=== PATIENT | female | born 1965 | race Caucasian/White ===

== ENCOUNTER 2021-08-09 08:57 | Outpatient (CLI) | payer OTHER, SELFPAY ==
--- NOTE | ~2021-08-09 | CT_ITS ---
EXAMINATION: CT brain wo con EXAM DATE: 08/09/2021 09:19 INDICATION: S09.90XA - Unspecified injury of head, initial encounter. TECHNIQUE: Spiral CT of the head was performed without contrast. Axial, coronal and sagittal images were reviewed. The dose-length product (DLP) for this examination was 599.57 mGy-cm. The exposure w as tailored according to patient size, and iterative reconstruction (ASIR) was used as additional dos e reduction technique. Comparison is made to prior examination from 10/05/2008. FINDINGS: Equivocal trace subarachnoid hemorrhage overlying posterior aspect right frontal lobe, slig ht hyperdensity along a sulcus. Location would be consistent with posttraumatic etiology. Assuming it is a real finding, should not require any further follow-up. There is mild atrophy and microangiopathy. No obstructive hydrocephalus, acute infarction, extra-axia l collection or brain mass. The orbits and soft tissues are unremarkable. IMPRESSION: Equivocal trace posttraumatic subarachnoid hemorrhage overlying right frontal lobe poste romedially. Reviewed, dictated and finalized at location B. IMPRESSION: Equivocal trace posttraumatic subarachnoid hemorrhage overlying ri ght frontal lobe posteromedially.
--- NOTE | ~2021-08-09 | XR_ITS ---
EXAMINATION: XR knee LT 3V DATE: 08/09/2021 09:54 INDICATION: Left knee pain. TECHNIQUE: 3 views of left knee including standing views were obtained. COMPARISON: None. FINDINGS: Bone alignment is normal. No fracture. There is mild osteoarthritis of medial and lateral c ompartments characterized by tiny osteophytes. No joint space narrowing. No knee joint effusion. IMPRESSION: 1. Mild left knee osteoarthritis. Reviewed, dictated and finalized at location A.
== END 2021-08-09 08:58 ==
PROVIDERS: PCP Internal Medicine; Visit Provider Nurse Practitioner
DX: M17.12 Unilateral primary osteoarthritis, left knee (principal); S06.6X9A Traumatic subarachnoid hemorrhage with loss of consciousness of unspecified duration, initial encounter
CPT/HCPCS: 70450; 73562

== ENCOUNTER 2023-04-07 09:58 | Outpatient (CLI) | payer OTHER, SELFPAY ==
--- NOTE | ~2023-04-07 | MR_ITS ---
MRI of the lumbar spine Clinical History: Lower extremity numbness Technique: Axial T2-weighted images, and sagittal T1-weighted, T2-weighted, and and T2 fat-sat images were acquired. COMPARISON: 05/30/2016 Findings: There is no fracture or subluxation of the lumbar spine. Osseous alignment is essentially u nchanged. No suspicious bone marrow signal abnormality identified. At L1-L2, L2-L3, L3-L4, there is mild degenerative disc narrowing. There are minimal disc bulges with moderate to advanced facet joint degenerative changes, worsening at the lower levels. There is no ce ntral canal stenosis results. There is minimal bilateral neural foraminal narrowing at these levels. At L4-L5, there is disc bulge and severe facet arthropathy. No central canal stenosis. There is moder ate bilateral neural foraminal narrowing, right worse than left. At L5-S1, there is disc bulge and severe facet arthropathy. There is moderate to advanced bilateral n eural foraminal narrowing. No darvin central canal stenosis. Paravertebral soft tissues are unremarkable. Impression: Moderate degenerative spondylosis at L4-L5 and L5-S1. Mild degenerative spondylosis at the remaining lumbar levels. Reviewed, dictated and finalized at [facility]. [employer] Impression: Moderate degenerative spondylosis at L4-L5 and L5-S1. Mild degenerative spondylosis at the remaining lumbar levels.
== END 2023-04-07 09:59 ==
PROVIDERS: PCP Nurse Practitioner; Visit Provider Nurse Practitioner
DX: M47.26 Other spondylosis with radiculopathy, lumbar region (principal)
CPT/HCPCS: 72148

== ENCOUNTER 2023-10-05 10:06 | Outpatient (CLI) | payer OTHER, SELFPAY ==
--- NOTE | ~2023-10-05 | MR_ITS ---
MRI of the cervical spine Clinical History: Myelopathy Technique: Axial T2-weighted and gradient images, and sagittal T1-weighted, T2-weighted, and STIR rocky ges were acquired. Findings: There is straightening of the normal cervical lordosis. There is minimal grade 1 anterolist hesis of C3 over C4. No fracture seen. No suspicious bone marrow signal abnormality seen. At C2-C3, there is no disc bulge or herniation. No spinal canal stenosis, cord compression, or neural foraminal narrowing. There is moderate facet arthropathy. At C3-C4, there is minimal disc osteophyte complex. There is mild bilateral facet arthropathy. There is probable mild right neural foraminal narrowing. No left neural foraminal narrowing. No central can al stenosis or cord compression. At C4-C5, there is degenerative disc narrowing, with mild disc osteophyte complex. No spinal canal st enosis, cord compression, or left neural foraminal narrowing. Probable minimal right neural foraminal narrowing. At C5-C6, there is degenerative disc narrowing with disc osteophyte complex, resulting in mild flatte dusty the ventral cord and mild canal stenosis. There is mild left neural foraminal narrowing. Right n eural foramen preserved. At C6-C7, there is advanced degenerative disc narrowing. There is mild disc osteophyte complex with m ild ventral cord compression and mild canal stenosis. There is preservation of the neural foramina. No abnormal signal seen in the spinal cord. Paravertebral soft tissues are unremarkable. Impression: Moderate degenerative spondylosis, as detailed above, worst at C5-C6 and C6-C7. Minimal grade 1 anterolisthesis of C3 over C4. Reviewed, dictated and finalized at [facility]. Impression: Moderate degenerative spondylosis, as detailed above, worst at C5-C6 and C6-C7. Minimal grade 1 anterolisthesis of C3 over C4.
== END 2023-10-05 10:07 ==
LOC: MICIMG 10:12
PROVIDERS: PCP Nurse Practitioner
DX: G95.9 Disease of spinal cord, unspecified (principal); M47.892 Other spondylosis, cervical region
CPT/HCPCS: 72141